=== PATIENT | female | born 2005 | race African-American/Black ===

== ENCOUNTER 2023-11-17 10:15 | Outpatient (REF) | payer OTHER, SELFPAY ==
--- NOTE | ~2023-11-17 | US_ITS ---
EXAMINATION: US PELVIS CLINICAL INFORMATION: Abnormal vaginal bleeding, onset last menstrual period 3 days ago with increased flow COMPARISON: None available. TECHNIQUE: Ultrasound of the pelvis is performed using both transabdominal and transvaginal transducers along with Doppler. Transvaginal imaging is performed due to inadequate visualization transabdominally. FINDINGS: Uterus measures 6.7 x 3.4 x 3.4 cm. No discrete fibroids. Endometrial thickness is 4 mm. Complex mobile material within the endometrial cavity is compatible with patient's stated history of current, active menstruation with increased flow. No significant free fluid. Right ovary measures 3.6 x 2.1 x 1.9 cm, volume 14.4 mL. Left ovary measures 3.6 x 2.1 x 1.9 cm, by 7.8 mL bilateral ovaries are grossly unremarkable in echogenicity, although visualization is limited due to bowel gas US/US pelvic and transvaginal IMPRESSION: 1. Endometrial thickness is 4 mm. Complex mobile material within the endometrial cavity is compatible with patient's stated history of current, active menstruation with increased flow. 2. No discrete fibroids. 3. Bilateral ovaries are grossly unremarkable in echogenicity, although visualization is limited due to bowel gas.
== END 2023-11-17 10:16 | disposition home or self-care (01) ==
LOC: HO.UMASIMG 10:15
PROVIDERS: Visit Provider Family Medicine
DX: N93.8 Other specified abnormal uterine and vaginal bleeding (principal)
CPT/HCPCS: 76830; 76856